=== PATIENT | female | born 1980 | race Caucasian/White ===

== ENCOUNTER 2019-05-10 11:30 | Day surgery (SDC) | payer MEDICAID ==
[~2019-05-10] VITALS: Ht 154.9 cm; Wt 63.1 kg
[2019-05-10] VITALS (15 sets, daily range): BP systolic 108–133; BP diastolic 59–74; PULSE 54–64; RESP 12–20; Ht 154.9 cm; Wt 63.1 kg
--- NOTE | 2019-05-10 07:56 | PREOPHP ---
DATE OF ADMISSION: 05/10/2019 The patient is scheduled for surgery on 05/10/2019. HISTORY OF PRESENT ILLNESS: The patient is a 39-year-old female in overall good health, who underwen t imaging studies in February 2018, revealing in the right breast at 10 o'clock, 6 cm from the nipple a 1. 3 x 1.1 x 1.2 cm suspicious solid mass, and in the left breast at 4 o'clock, 5 cm from the nipple a 1 cm probable fibroadenoma. Core biopsy of the right breast mass reveals fibrocystic changes and scle rosing adenosis. Follow up ultrasound 03/14/2019 revealed an increase in size of the right breast ma ss at 10 o'clock, measuring 1.5 x 1.1 x 1.2 cm. 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 Because the pathology is not concordant with the appearance on imaging studies, excisional biopsy is required. She has no prior history of breast disease and no family history of breast cancer. PAST MEDICAL HISTORY: MEDICATIONS: None. ALLERGIES: None. OPERATIONS: section. REVIEW OF SYSTEMS: Para 2 2. Regular menstrual periods. PHYSICAL EXAMINATION: GENERAL: The patient is 5 foot 2 inches, 137 pounds. VITAL SIGNS: Within normal limits. HEENT: Within normal limits. CHEST: Clear. HEART: Regular rhythm. BREAST: The breasts are medium in size and ptotic. Examination of the right breast reveals a 1.2 cm mass at 9 to 10 o'clock between the areola and the periphery. There is no left breast mass. There is no axillary or supraclavicular lymphadenopathy. ABDOMEN: Soft. PELVIC AND RECTAL: Per primary care. EXTREMITIES: Without edema. NEUROLOGIC: Physiologic. IMPRESSION: Right breast mass. PLAN: Excision of right breast mass. I had a full discussion with the patient regarding the nature of her condition, the nature of the surgery, indications, alternatives, options and risks including b leeding, infection, scarring and distortion of the breast, need for additional surgery or other treat ments, based on final pathology, et cetera. All questions have been answered. She understands and a grees to proceed. Dictated By: JAYLA ADAMS/JIMMY Conf#: [id number] DID#: [id number]
[~2019-05-10 11:30] MED LIST: CEFAZOLIN 1 GM/50 ML (PMX) 50 ML IVPB ONE; SOD CHLORIDE 0.9% 1,000 ML IV SCH
--- NOTE | 2019-05-10 14:20 | PREAC ---
Date/Time of Note Date/Time of Note DATE: 05/10/19 TIME: 14:20 Anesthesia Eval and Record Evaluation Time Pre-Procedure Interview DATE: 05/10/19 TIME: 14:20 Age 39 Sex female NPO: 8 hrs Preoperative diagnosis R breast mass Planned procedure R breast mastectomy Past Medical History Past Medical History: Includes Cardio: HTN Surgery & Anesthesia Issues No known issue Meds Anticoagulation: No Beta Yakov within 24 hr: No Reason Beta Yakov not given: Pt. not on B-Yakov No Active Prescriptions or Reported Meds Current Medications Sodium Chloride 1,000 ml @ 75 mls/hr [id number] IV ; Start 05/10/19 at 06:00; Stop 05/10/19 at 23:00 Meds reviewed: Yes Allergies Coded Allergies: No Known Allergies (Verified Allergy, Unknown, 05/10/19) Allergies Reviewed: Yes Labs/Studies Labs Reviewed: Reviewed by anesthesiologist test: Negative Pre-procedure Exam Last vitals Vital Signs Date Temp Pulse Resp B/P (MAP) Pulse Ox O2 O2 Flow FiO2 Time Delivery Rate 05/10/19 98.0 64 16 133/59 100 13:34 (83) Airway: Adequate mouth opening, Adequate thyromental dist Mallampati: Mallampati II Teeth: Normal Lung: Normal Heart: Normal ASA Physical Status ASA physical status: 2 Emergency: None Planned Anesthetic General/MAC: ETT Pre-operative Attestations Prior to commencing anesthesia and surgery, the patient was re-evaluated, there was verification of: *The patient's identity *The results of appropriate recent lab work and preoperative vital signs *The above evaluation not changing prior to induction *Anesthetic plan, risk benefits, alternative and complications discussed with patient/family; questions answered; patient/family understands, accepts and wishes to proceed. GODWIN OWENS May 10, 2019 14:20
--- NOTE | 2019-05-10 14:28 | HPN ---
Date/Time of Note Date/Time of Note DATE: 05/10/19 TIME: 14:28 Interval H&P Admission Note Pt. seen H&P reviewed: No system changes JAYLA SEALS May 10, 2019 14:28
[2019-05-10] MEDS ORDERED: ONDANSETRON 4 MG INJ IV PRN (14:30)
[2019-05-10] MEDS ORDERED: ALBUTEROL 0.083% (NEB) 2.5 MG/3 ML AMP HHN PRN (14:30)
[2019-05-10] MEDS ORDERED: HYDROmorphONE 1 MG/5 ML IV SYRINGE IV PRN ×3 (14:30)
[2019-05-10] MEDS ORDERED: DIPHENHYDRAMINE 50 MG INJ IV PRN (14:30)
[2019-05-10] MEDS ORDERED: MEPERIDINE 25 MG INJ IV PRN (14:30)
[2019-05-10] MEDS ORDERED: FENTAnyl 50 MCG/ML VIAL IV PRN ×2 (14:30)
[2019-05-10] MEDS ORDERED: METOCLOPRAMIDE 10 MG INJ IV PRN (14:30)
[2019-05-10] MEDS ORDERED: SUCCINYLCHOLINE CHLORIDE 100 MG/5 ML SYG IV ONE ×2 (14:41→15:40)
[2019-05-10] MEDS ORDERED: FENTAnyl 50 MCG/ML VIAL ONE (14:41)
[2019-05-10] MEDS ORDERED: NEOSTIGMINE 3 MG/3 ML SYRINGE ONE (14:41)
[2019-05-10] MEDS ORDERED: LIDOCAINE 2% (SDV) 5 ML INJ ONE (14:41)
[2019-05-10] MEDS ORDERED: GLYCOPYRROLATE 0.4 MG INJ ONE (14:41)
[2019-05-10] MEDS ORDERED: DESFLURANE 15 MIN ONE (14:41)
[2019-05-10] MEDS ORDERED: LIDOCAINE 1% (MPF) 30 ML INJ ONE (15:01)
[2019-05-10] MEDS ORDERED: ROCURONIUM 50 MG INJ ONE (15:40)
[2019-05-10] MEDS ORDERED: PROPOFOL 20 ML ONE (15:40)
[2019-05-10] MEDS ORDERED: CEFAZOLIN 1 GM INJ ONE (15:40)
--- NOTE | 2019-05-10 15:45 | SIPON ---
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
--- NOTE | 2019-05-10 17:17 | PAC ---
Date/Time of Note Date/Time of Note DATE: 05/10/19 TIME: 17:16 Post-Anesthesia Notes Post-Anesthesia Note Last documented vital signs Vital Signs Date Temp Pulse Resp B/P (MAP) Pulse Ox O2 O2 Flow FiO2 Time Delivery Rate 05/10/19 97.5 54 18 121/66 98 Room Air 16:50 (84) Activity: WNL Respiratory function: WNL Cardiovascular function: WNL Mental status: Baseline Pain reasonably controlled: Yes Hydration appropriate: Yes Nausea/Vomiting absent: Yes GODWIN OWENS May 10, 2019 17:17
--- NOTE | 2019-05-10 21:26 | OPR ---
DATE OF OPERATION: 05/10/2019 SURGEON: Jayla Jones. GILL BOX OPERATOR: None. ANESTHESIOLOGIST: Dr. Guzmán. TYPE OF ANESTHESIA: General. PREOPERATIVE DIAGNOSIS: Right breast mass. POSTOPERATIVE DIAGNOSIS: Right breast mass. OPERATION PERFORMED: Wide excision of right breast mass. INDICATIONS: The patient has had an enlarging right breast mass in the lateral breast at 10 o'clock, with 2 core biopsies revealing sclerosing adenosis, but imaging studies not concordant with this pathology accordingly excision was needed. DESCRIPTION OF PROCEDURE: The patient was taken to the operating room and under general anesthesia, with sequential compression device stockings in place, she was prepped and draped in the usual fashion. A radial lateral right breast incision was made, achieving hemostasis with cautery and dissecting flaps circumferentially. The hard mass was resected with a wide margin of breast tissue orienting with sutures located anterior, medial and superior. The lesion was excised and given to pathology. The field was irrigated and hemostasis secured with cautery. The incision was closed with interrupted inverted deep dermal subcutaneous 3-0 Vicryl sutures followed by continuous 4-0 Monocryl subcuticular suture. Mastisol and 1/2-inch Steri-Strips were applied, followed by dry sterile dressing. Final sponge and needle counts were correct. The patient tolerated the procedure well and left the operating room in good condition. Dictated By: JAYLA ADAMS/JIMMY Conf#: [id number] DID#: [id number] MTDD
== END 2019-05-10 17:50 | disposition home or self-care (01) ==
LOC: SDS 11:30
PROVIDERS: ATTEND Surgery
DX: N60.21 Fibroadenosis of right breast (principal); N60.11 Diffuse cystic mastopathy of right breast; N60.91 Unspecified benign mammary dysplasia of right breast; I10 Essential (primary) hypertension
CPT/HCPCS: 19120; 84703; 88307; J0690; J3010; Z7512; Z7610; J2710